=== PATIENT | male | born 1990 | race Two or more races ===

== ENCOUNTER 2020-12-17 20:09 | Emergency (ER) | payer MEDICAID, OTHER ==
[~2020-12-17] VITALS: Ht 175.3 cm; Wt 90.7 kg
[2020-12-17 23:52] VITALS: BP 119/75
== END 2020-12-17 23:07 | disposition left against medical advice (07) ==
LOC: ER 20:13
DX: L02.511 Cutaneous abscess of right hand (principal); L02.512 Cutaneous abscess of left hand; L02.415 Cutaneous abscess of right lower limb; Z53.21 Procedure and treatment not carried out due to patient leaving prior to being seen by health care provider

== ENCOUNTER 2022-04-13 21:10 | Emergency (ER) | payer MEDICAID ==
[~2022-04-13] VITALS: Ht 177.8 cm; Wt 81.6 kg
[2022-04-13 22:10] VITALS: BP 127/54
== END 2022-04-13 22:13 ==
LOC: ER 21:11
DX: R07.89 Other chest pain; F19.10 Other psychoactive substance abuse, uncomplicated
CPT/HCPCS: 93005

== ENCOUNTER 2025-02-08 20:53 | Inpatient (IN) | payer MEDICAID ==
[~2025-02-08] VITALS: Ht 177.8 cm; Wt 88.2 kg
[2025-02-08] MEDS ORDERED: SODIUM CHLORIDE 0.9% 1,000 ML IV ONE (22:00)
[2025-02-08] MEDS ORDERED: ACETAMINOPHEN 325 MG TAB PO ONE (22:00)
[2025-02-08] MEDS ORDERED: PIPERACILLIN-TAZOB 3.375GM 100 ML IV SCH (22:00)
[2025-02-08] MEDS ORDERED: VANCOMYCIN PER PHARMACY 0 MG IV SCH (22:00)
--- NOTE | 2025-02-08 22:07 | ED.PDOC ---
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, was discharged, came here to see his mother, and decided to check in ER. Patient denies fever/chills/nausea/vomiting, he reports diarrhea 3 episodes today-nonbloody. Denies any urinary symptoms. Reports recent meth use. Also reports right thigh 2 cm erythematous swelling with a puncta. Patient noticed that earlier today and thinks with appeared from the pant wearing as he had a lot of itching for the past few days. Patient seen and examined in ER lobby, CT right lower extremity pending, IV antibiotics, blood cultures and wound cultures ordered. Chief Complaint: Abscess Time Seen by MD: 20:56 Reviewed Notes: Nurses Notes Allergies: Coded Allergies: NO KNOWN ALLERGIES (Unverified , 12/17/20) Home Meds Active Scripts Ibuprofen Micronized (MOTRIN TABLET) 600 Mg Tb, 600 MG PO TID PRN for 10 Days, #30 TAB *Black box warning-NSAIDS can increase risk of ND & hypertension, GI irritation, ulceration, bleed, perferation. Do not use post cardiac surgery. Use short duration/lowest effective dose. Prov:BEST COHEN MD 02/09/25 Famotidine (PEPCID TABLET) 20 Mg Tb, 1 TAB PO BID for 30 Days, #60 TAB 0 Refills Prov:BEST COHEN MD 02/09/25 Amoxicillin & Pot Clavulanate (AUGMENTIN TABLET) 875 Mg Tb, 875 MG PO BID for 14 Days, #28 TAB Prov:BEST COHEN MD 02/09/25 Information Source: Patient Mode of Arrival: Ambulatory Past Medical History PAST MEDICAL HISTORY: Denies Surgical History: Denies all surgeries Family History Family History: Reviewed,noncontributory to illness Social History Smoker: Non-Smoker Alcohol: Denies ETOH Use Drugs: Denies Drug Use Lives In: Home Constitutional: denies: chills, diaphoresis, fatigue, fever, malaise, sweats, weakness, others EENTM: denies: blurred vision, double vision, ear bleeding, ear discharge, ear drainage, ear pain, ear ringing, eye pain, eye redness, hearing loss, mouth pain, mouth swelling, nasal discharge, nose bleeding, nose congestion, nose pain, photophobia, tearing, throat pain, throat swelling, voice changes, others Respiratory: denies: cough, hemoptysis, orthopnea, SOB at rest, shortness of breath, SOB with excertion, stridor, wheezing, others Cardiovascular: denies: chest pain, dizzy spells, diaphoresis, Dyspnea on exertion, edema, irregular heart beat, left arm pain, lightheadedness, palpitations, PND, syncope, others Gastrointestinal: reports: diarrhea Genitourinary: denies: burning, dysuria, flank pain, frequency, hematuria, incontinence, penile discharge, penile sore, pain, testicle pain, testicle swelling, urgency, others Neurological: denies: dizziness, fainting, headache, left sided numbness, left sided weakness, numbness, paresthesia, pre-existing deficit, right sided numbness, right sided weakness, seizure, speech problems, tingling, tremors, weakness, others Musculoskeletal: reports: muscle pain Integumetry: reports: change in color, laceration, wounds Allergic/Immunocompromised: denies: Difficulty Healing, Frequent Infections, Hives, Itching, others Hematologic/Lymphatic: denies: anemia, blood clots, easy bleeding, easy bruising, swollen glands, others Endocrine: denies: excessive hunger, excessive sweating, excessive thirst, excessive urination, flushing, intolerance to cold, intolerance to heat, unexplained weight gain, unexplained weight loss, others Psychiatric: denies: anxiety, bipolar disorder, depression, hopeless, panic disorder, schizophrenia, sleepless, suicidal, others Physical Exam General Appearance: Mild Distress, Normal HEENT: Normal ENT Inspection, Pharynx Normal, TMs Normal Neck: Full Range of Motion, Non-Tender, Normal, Normal Inspection Respiratory: Chest Non-Tender, Lungs Clear, No Accessory Muscle Use, No Respiratory Distress, Normal Breath Sounds Cardiovascular: No Edema, No JVD, No Murmur, No Gallop, Normal Peripheral Pulses, Regular Rate/Rhythm Breast Exam: Deferred Gastrointestinal: No Organomegaly, Non Tender, No Pulsatile Mass, Normal Bowel Sounds, Soft Genitalia: Deferred Pelvic: Deferred Rectal: Deferred Extremities: No calf tenderness, Pedal edema, Swelling, Tender Musculoskeletal : Apperance: Normal Neurologic: Alert, stringer up soldering machine II-XII nml as Tested, No Motor Deficits, Normal Affect, Normal Mood, No Sensory Deficits Cerebellar Function: Normal Reflexes: Normal Skin: Dry, Normal Color, Warm Lymphatic: No Adenopathy Was a procedure done? Was a procedure done?: No Differential Diagnosis EXT Differential Diagnosis: Cellulitis, Deep Vein Thrombosis, Compartment Syndrome X-Ray, Labs, Meds, VS Vital Signs Date Time Temp Pulse Resp B/P (MAP) Pulse Ox O2 Delivery O2 Flow Rate FiO2 02/08/25 20:54 99.4 94 20 117/79 98 99.4 Lab Test 02/08/25 22:15 Range/Units White Blood Count 7.8 4.4-10.8 10^3/uL Red Blood Count 4.21 L 4.5-5.90 10^6/uL Hemoglobin 13.1 L 13.5-17.5 g/dL Hematocrit 38.4 L 41.0-53.0 % Mean Corpuscular Volume 91.3 80.0-100.0 fL Mean Corpuscular Hemoglobin 31.1 28.0-32.0 pg Mean Corpuscular Hemoglobin Concent 34.0 32.0-36.0 g/dL Red Cell Distribution Width 13.3 11.8-14.3 % Platelet Count 337 140-450 10^3/uL Mean Platelet Volume 7.4 6.9-10.8 fL Neutrophils (%) (Auto) 76.9 37.0-80.0 % Lymphocytes (%) (Auto) 15.4 10.0-50.0 % Monocytes (%) (Auto) 5.6 0.0-12.0 % Eosinophils (%) (Auto) 1.3 0.0-7.0 % Basophils (%) (Auto) 0.8 0.0-2.0 % Neutrophils # (Auto) 6.0 1.6-8.6 10 ^3/uL Lymphocytes # (Auto) 1.2 0.4-5.4 10 ^3/uL Monocytes # (Auto) 0.4 0-1.3 10 ^3/uL Eosinophils # (Auto) 0.1 0-0.8 10 ^3/uL Basophils # (Auto) 0.1 0-0.2 10 ^3/uL Nucleated Red Blood Cells 0.0 % Erythrocyte Sedimentation Rate 13 0-20 mm/hr Sodium Level 139 136-145 mmol/L Potassium Level 4.3 3.5-5.1 mmol/L Chloride Level 103 98-107 mmol/L Carbon Dioxide Level 28 20-31 mmol/L Anion Gap 8 5-15 Blood Urea Nitrogen 9 9-23 mg/dL Creatinine 0.84 0.700-1.30 mg/dL Glomerular Filtration Rate Calc 116 >90 mL/min BUN/Creatinine Ratio 10.7 10.0-20.0 Serum Glucose 97 74-106 mg/dL Lactic Acid Level 1.3 0.4-2.0 mmol/L Calcium Level 9.1 8.7-10.4 mg/dL Microbiology Date/Time Source Procedure Growth Status 02/08/25 22:15 Blood Blood Culture - Preliminary NO GROWTH AFTER 48 HOURS OF INCUBATION. Resulted 02/08/25 22:00 Blood Blood Culture - Preliminary NO GROWTH AFTER 48 HOURS OF INCUBATION. Resulted Time of 1ST Reevaluation: 22:00 Reevaluation 1ST: Unchanged Time of 2ND Reevaluation: 23:00 Reevaluation 2ND: Unchanged Patient Education/Counseling: Diagnosis, Treatment, Prognosis, Need For Follow Up Family Education/Counseling: No Family Present Sepsis Sepsis Reasesment Focused Exam Orders: Laboratory Tests 02/08/25 22:15: Lactic Acid Level 1.3 Departure 1 Departure Time of Disposition: 23:50 Impression: Primary Impression: Cellulitis of right lower extremity Additional Impressions: Bite wound Abscess Disposition: 30 STILL A PATIENT Condition: Fair Additional Instructions: IV Zosyn, IV vancomycin, CT right lower extremity, Doppler right lower extremity, blood culture, ordered. Patient will be admitted to this facility for further management and evaluation. e-Prescriptions Ibuprofen Micronized (MOTRIN TABLET) 600 Mg Tb 600 MG PO TID PRN for 10 Days, #30 TAB *Black box warning-NSAIDS can increase risk of ND & hypertension, GI irritation, ulceration, bleed, perferation. Do not use post cardiac surgery. Use short duration/lowest effective dose. Prov: BEST COHEN MD 02/09/25 Famotidine (PEPCID TABLET) 20 Mg Tb 1 TAB PO BID for 30 Days, #60 TAB 0 Refills Prov: BEST COHEN MD 02/09/25 Amoxicillin & Pot Clavulanate (AUGMENTIN TABLET) 875 Mg Tb 875 MG PO BID for 14 Days, #28 TAB Prov: BEST COHEN MD 02/09/25 Discharged With: Self Comments Attestation: I saw and evaluated the patient. I agree with the findings and plan of care as documented by the resident note. DEMETRIA HEREDIA MD Critical Care Note Critical Care Time?: No Stability Stability form required: KATHLEEN Catalan RESIDENT Feb 08, 2025 22:07 DEMETRIA HEREDIA MD Feb 11, 2025 03:51
[2025-02-08] MEDS ORDERED: VANCOMYCIN 1.75 GM/350 ML IV ONE (22:15)
[2025-02-08] MEDS ORDERED: PIPERACILLIN-TAZOB 3.375GM 100 ML IV ONE (22:15)
[2025-02-08 22:33] LABS: Hematocrit 38.4 % (41.0-53.0); Hemoglobin 13.1 g/dL (13.5-17.5); Mean Corpuscular Hemoglobin 31.1 pg (28.0-32.0); Mean Corpuscular Volume 91.3 fL (80.0-100.0); Nucleated Red Blood Cells % 0.0 %
[2025-02-08 22:42] LABS: Chloride 103 mmol/L (98-107); Potassium 4.3 mmol/L (3.5-5.1); Sodium 139 mmol/L (136-145)
[2025-02-08 22:43] LABS: Anion Gap 8 (5-15); Calcium 9.1 mg/dL (8.7-10.4); Carbon Dioxide 28 mmol/L (20-31)
[2025-02-08 22:48] LABS: BUN/Creatinine Ratio 10.7 (10.0-20.0); Glucose 97 mg/dL (74-106)
[2025-02-08 22:50] LABS: Blood Urea Nitrogen 9 mg/dL (9-23)
--- NOTE | 2025-02-08 23:06 | DVH ---
CLINICAL HISTORY: swelling, r/o dvt TECHNIQUE: Color and duplex doppler imaging of the right lower extremity veins was performed. Vessel compression if possible was also performed. WID: COMPARISON: CT CT R TIB FIB WO CONTRAST on DOS: 02/08/25 FINDINGS: Right common femoral vein: Normal compressibility and flow. Right femoral vein: Normal compressibility and flow. Right popliteal vein: Normal compressibility and flow. Proximal calf veins are normally compressible. Reactive appearing lymph node in the right inguinal region measuring 4.5 x 2.8 x 0.7 cm. IMPRESSION: 1. NO SONOGRAPHIC EVIDENCE FOR DEEP VENOUS THROMBOSIS IN THE RIGHT LOWER EXTREMITY VEINS.
--- NOTE | 2025-02-08 23:38 | DVH ---
EXAM: CT CT R TIB FIB WO CONTRAST HISTORY: r/o nec fascitis, cellulitis, draining wound R knee and thig COMPARISON: None TECHNIQUE: Noncontrast axial CT images of the tibia and fibula were performed. Sagittal and coronal r eformatted images were obtained. This CT exam was performed using one or more of the following dose r eduction techniques: Automated exposure control, adjustment of the mA and/or kV according to patient size, or use of iterative reconstruction technique. Radiation Dose Information: CT Dose: CTDI volume is 7.85 mGy. Dose-length product is 508.2 mGy*cm FINDINGS: Normal mineralization and alignment. Joint spaces preserved. There is no acute fracture. No focal ost eopenia or cortical destruction to suggest osteomyelitis. There is moderate diffuse subcutaneous lm a within the right lower extremity. There is a small right knee joint effusion. The Muscle bundles ab out the distal right lower extremity are intact. There is no soft tissue gas or loculated fluid eugene ection. IMPRESSION: 1. No acute fracture or evidence of osteomyelitis in the right tibia and fibula. 2. Moderate subcutaneous edema within the distal right lower extremity which could reflect cellulitis . No soft tissue gas to suggest necrotizing infection. 3. No well-formed fluid collection to suggest abscess. 4. Small right knee joint effusion.
[2025-02-09] VITALS (7 sets, daily range): BP systolic 115–127; BP diastolic 68–84; PULSE 66–83; RESP 16–18; TEMP 97.5–98.1; O2SAT 98–100
[2025-02-09] MEDS ORDERED: ONDANSETRON HCL 4 MG/2 ML VIAL IV PRN (01:00)
[2025-02-09] MEDS ORDERED: VANCOMYCIN PER PHARMACY 0 MG IV SCH (01:00)
[2025-02-09] MEDS ORDERED: ACETAMINOPHEN 325 MG TAB PO PRN (01:00)
[2025-02-09] MEDS ORDERED: HYDROcodone-ACET 5/325MG TAB PO PRN (01:00)
[2025-02-09] MEDS ORDERED: TEMAZEPAM 15 MG CAP PO PRN (01:00)
[2025-02-09] MEDS ORDERED: PIPERACILLIN-TAZOB 3.375GM 100 ML IV SCH (02:30)
[2025-02-09] MEDS: SODIUM CHLORIDE 0.9% 1,000 ML IV ONE (03:48)
[2025-02-09] MEDS: ACETAMINOPHEN 325 MG TAB PO ONE (03:50)
[2025-02-09] MEDS: VANCOMYCIN 1.75 GM/350 ML IV ONE (03:53)
[2025-02-09] MEDS: PIPERACILLIN-TAZOB 3.375GM 100 ML IV ONE (04:06)
--- NOTE | 2025-02-09 04:37 | DVHHP2 ---
History of Present Illness Reason for Visit: Extremity swelling History of Present Illness 35-year-old male presents for evaluation of right lower extremity swelling. Patient reports being bitten by a spider on his right posterior knee four days ago. He states noticing swelling for the past three days and has noticed some purulent discharge for the past two days. Denies fever or chills. No other acute complaints reported. Past Medical History Denies Past Surgical History Denies Family History Noncontributory Smoke: No ALCOHOL: none Drugs: None Lives: with Family Review of Systems Review of Systems Review of systems are currently negative otherwise addressed in HPI. Allergies: Coded Allergies: NO KNOWN ALLERGIES (Unverified , 12/17/20) Medications Current Medications Medications Dose Ordered Sig/Prashanth Route Start Time Stop Time Status Last Admin Dose Admin Vancomycin HCl 0 ml @ 0 mls/hr UD IV 02/08/25 22:00 UNV Acetaminophen/ Hydrocodone Bitart 1 tab Q4HP PRN PO 02/09/25 01:00 Temazepam 15 mg QHSP PRN PO 02/09/25 01:00 Ondansetron HCl 4 mg Q4HP PRN IV 02/09/25 01:00 Acetaminophen 650 mg Q6HP PRN PO 02/09/25 01:00 Piperacillin Sod/ Tazobactam Sod 100 ml @ 25 mls/hr Q8HR@0400,1200,2000 IV 02/09/25 12:00 Exam Vital Signs Vital Signs Date Time Temp Pulse Resp B/P (MAP) Pulse Ox O2 Delivery O2 Flow Rate FiO2 02/09/25 01:22 98.4 89 19 113/72 (86) 98 98.4 Exam Gen: 35-year-old male in mild distress Skin: Warm, dry, normal color and texture, no rash. HEENT: Normocephalic atraumatic, mucous membranes moist and pink. Neck: Cervical and supraclavicular nodes normal without enlargement, trachea is midline, thyroid gland is normal without masses. Pulmonary: Clear to auscultation and percussion bilaterally. Cardiac: Regular rate and rhythm. No murmur Abdomen: Soft, nontender, nondistended, bowel sounds present all 4 quadrants, no guarding, no rigidity, no organomegaly. Extremities: No cyanosis, clubbing, right lower extremity with cellulitis and plus two edema with positive distal pulses Neuro: Cranial nerves II through XII grossly intact, normal affect and speech, no focal motor deficits. Labs/Xrays ORDERING PHYSICIAN: KATHLEEN NORWOOD RESIDENT PROCEDURE(s): RTBCT - CT R TIB FIB WO CONTRAST REASON: r/o nec fascitis, cellulitis, draining wound R knee and thig ORDER NUMBER(s): [id number], ACCESSION NUMBER(s): [id number] EXAM: CT CT R TIB FIB WO CONTRAST HISTORY: r/o nec fascitis, cellulitis, draining wound R knee and thig COMPARISON: None TECHNIQUE: Noncontrast axial CT images of the tibia and fibula were performed. Sagittal and coronal reformatted images were obtained. This CT exam was performed using one or more of the following dose reduction techniques: Automated exposure control, adjustment of the mA and/or kV according to patient size, or use of iterative reconstruction technique. Radiation Dose Information: CT Dose: CTDI volume is 7.85 mGy. Dose-length product is 508.2 mGy*cm FINDINGS: Normal mineralization and alignment. Joint spaces preserved. There is no acute fracture. No focal osteopenia or cortical destruction to suggest osteomyelitis. There is moderate diffuse subcutaneous edema within the right lower extremity. There is a small right knee joint effusion. The Muscle bundles about the distal right lower extremity are intact. There is no soft tissue gas or loculated fluid collection. IMPRESSION: 1. No acute fracture or evidence of osteomyelitis in the right tibia and fibula. 2. Moderate subcutaneous edema within the distal right lower extremity which could reflect cellulitis. No soft tissue gas to suggest necrotizing infection. 3. No well-formed fluid collection to suggest abscess. 4. Small right knee joint effusion. Labs Test 02/08/25 22:15 Range/Units White Blood Count 7.8 4.4-10.8 10^3/uL Red Blood Count 4.21 L 4.5-5.90 10^6/uL Hemoglobin 13.1 L 13.5-17.5 g/dL Hematocrit 38.4 L 41.0-53.0 % Mean Corpuscular Volume 91.3 80.0-100.0 fL Mean Corpuscular Hemoglobin 31.1 28.0-32.0 pg Mean Corpuscular Hemoglobin Concent 34.0 32.0-36.0 g/dL Red Cell Distribution Width 13.3 11.8-14.3 % Platelet Count 337 140-450 10^3/uL Mean Platelet Volume 7.4 6.9-10.8 fL Neutrophils (%) (Auto) 76.9 37.0-80.0 % Lymphocytes (%) (Auto) 15.4 10.0-50.0 % Monocytes (%) (Auto) 5.6 0.0-12.0 % Eosinophils (%) (Auto) 1.3 0.0-7.0 % Basophils (%) (Auto) 0.8 0.0-2.0 % Neutrophils # (Auto) 6.0 1.6-8.6 10 ^3/uL Lymphocytes # (Auto) 1.2 0.4-5.4 10 ^3/uL Monocytes # (Auto) 0.4 0-1.3 10 ^3/uL Eosinophils # (Auto) 0.1 0-0.8 10 ^3/uL Basophils # (Auto) 0.1 0-0.2 10 ^3/uL Nucleated Red Blood Cells 0.0 % Erythrocyte Sedimentation Rate 13 0-20 mm/hr Sodium Level 139 136-145 mmol/L Potassium Level 4.3 3.5-5.1 mmol/L Chloride Level 103 98-107 mmol/L Carbon Dioxide Level 28 20-31 mmol/L Anion Gap 8 5-15 Blood Urea Nitrogen 9 9-23 mg/dL Creatinine 0.84 0.700-1.30 mg/dL Glomerular Filtration Rate Calc 116 >90 mL/min BUN/Creatinine Ratio 10.7 10.0-20.0 Serum Glucose 97 74-106 mg/dL Lactic Acid Level 1.3 0.4-2.0 mmol/L Calcium Level 9.1 8.7-10.4 mg/dL SEPSIS Sepsis Screen Date sepsis recognized/suspect: Feb 08, 2025 Time Sepsis recognized/suspect: 2055 Recent Procedure: No On Antibiotic Therapy: No Respiratory Rate >20: No Heart Rate >90: Yes Temp<36 C (96.8 F) or >38.3 C: No SBP <90 or MAP <65 mmHG: No New Acute Mental Status Change: No Is the patient on CPAP, BIPAP,: No Physician Orders Blood Culture (02/08/25 21:52) Wound Culture W/ Gs (02/08/25 21:52) Vancomycin Per Pharmacy (02/08/25 22:00) Ct R Tib Fib Wo Contrast (02/08/25 21:52) Rt Lower Dvt (02/08/25 21:55) Cleanse Wound With Ns (02/08/25 21:56) Drug Screen (02/08/25 21:57) Urinalysis (02/08/25 21:57) Regular Diet (02/09/25 Breakfast) Basic Metabolic Panel (02/09/25 04:00) Complete Blood Count (02/09/25 04:00) Admit (02/09/25 00:50) Hydrocodone-Acet 5/325mg Tab (Alba 5/32 (02/09/25 01:00) Temazepam (Restoril) (02/09/25 01:00) Ondansetron Hcl (Zofran) (02/09/25 01:00) Condition: Stable (02/09/25 00:50) Acetaminophen Tablet (Tylenol Tablet) (02/09/25 01:00) Bedrest With Bathroom Privileg (02/09/25 00:50) Vancomycin 1.75gm/350ml (02/09/25 03:30) Piperacillin-Tazob 3.375gm (Zosyn 3.375g (02/09/25 12:00) Vital Signs Date Time Temp Pulse Resp B/P (MAP) Pulse Ox O2 Delivery O2 Flow Rate FiO2 02/09/25 01:22 98.4 89 19 113/72 (86) 98 98.4 02/08/25 20:54 99.4 94 20 117/79 98 99.4 Laboratory Tests Test 02/08/25 22:15 Lactic Acid Level 1.3 mmol/L (0.4-2.0) White Blood Count 7.8 10^3/uL (4.4-10.8) Medications Medications Dose Ordered Sig/Prashanth Route Start Time Stop Time Status Last Admin Dose Admin Acetaminophen 650 mg ONCE ONCE PO 02/09/25 03:30 02/09/25 03:31 DC 02/09/25 03:50 650 MG Piperacillin Sod/ Tazobactam Sod 100 ml @ 100 mls/hr ONCE ONCE IV 02/09/25 03:30 02/09/25 04:29 DC 02/09/25 04:06 100 MLS/HR Sodium Chloride 1,000 ml @ 1,000 mls/hr Q1H ONCE IV 02/09/25 03:30 02/09/25 04:29 DC 02/09/25 03:48 1,000 MLS/HR Vancomycin HCl 350 ml @ 200 mls/hr ONCE ONCE IV 02/09/25 03:30 02/09/25 05:14 02/09/25 03:53 200 MLS/HR Assessment/Plan Assessment/Plan Assessment Right lower extremity cellulitis Plan Admit the patient to [facility] to the hospitalist Zosyn/vancomycin Wound culture pending Pain management Continue treatment per orders. Plan discussed with: Patient My Orders Orders - FEDERICO MCQUEEN Procedure Category Date Status Time Regular Diet DIET 02/09/25 Transmitted Breakfast Basic Metabolic Panel LAB 02/09/25 Logged 04:00 Complete Blood Count LAB 02/09/25 Logged 04:00 Admit ADMIT 02/09/25 Transmitted 00:50 Hydrocodone-Acet PHA 02/09/25 In Process 5/325mg Tab (Alba 01:00 Temazepam (Restoril) PHA 02/09/25 In Process 01:00 Ondansetron Hcl PHA 02/09/25 In Process (Zofran) 01:00 Condition: Stable RIKKI 02/09/25 In Process 00:50 Acetaminophen Tablet PHA 02/09/25 In Process (Tylenol Tablet) 01:00 Bedrest With Bathroom RIKKI 02/09/25 In Process Privileg 00:50 Piperacillin-Tazob PHA 02/09/25 In Process 3.375gm (Zosyn 3.375g 12:00 Date of Service: Feb 09, 2025 Billing Provider: FEDERICO MCQUEEN Common Visit Codes: [id number] INP/OBS CARE (MOD) FEDERICO MCQUEEN Feb 09, 2025 04:37
[2025-02-09 06:26] LABS: Anion Gap 11 (5-15); Calcium 8.8 mg/dL (8.7-10.4); Carbon Dioxide 27 mmol/L (20-31); Chloride 105 mmol/L (98-107); Potassium 3.7 mmol/L (3.5-5.1); Sodium 143 mmol/L (136-145)
[2025-02-09 06:32] LABS: BUN/Creatinine Ratio 12.2 (10.0-20.0); Blood Urea Nitrogen 10 mg/dL (9-23); Glucose 83 mg/dL (74-106)
[2025-02-09 06:35] LABS: Hematocrit 38.3 % (41.0-53.0); Hemoglobin 12.8 g/dL (13.5-17.5); Mean Corpuscular Hemoglobin 30.7 pg (28.0-32.0); Mean Corpuscular Volume 91.9 fL (80.0-100.0); Nucleated Red Blood Cells % 0.1 %
[2025-02-09] MEDS ORDERED: FAMO20TA10 PO (11:07)
[2025-02-09] MEDS ORDERED: AUG875T PO (11:07)
[2025-02-09] MEDS ORDERED: IBU600T PO (11:07)
[2025-02-09] MEDS: VANCOMYCIN 1GM/250ML KIT 250 ML IV SCH (11:42)
[2025-02-09] MEDS: PIPERACILLIN-TAZOB 3.375GM 100 ML IV SCH (12:00)
--- NOTE | 2025-02-09 13:22 | DVHDS2 ---
Discharge Summary Date of Admission Feb 09, 2025 at 00:50 Date of Discharge: Feb 09, 2025 Labs/Diagnostic Data: Laboratory Results Test 02/09/25 05:02 02/08/25 22:15 White Blood Count 7.2 10^3/uL (4.4-10.8) Red Blood Count 4.17 10^6/uL (4.5-5.90) Hemoglobin 12.8 g/dL (13.5-17.5) Hematocrit 38.3 % (41.0-53.0) Mean Corpuscular Volume 91.9 fL (80.0-100.0) Mean Corpuscular Hemoglobin 30.7 pg (28.0-32.0) Mean Corpuscular Hemoglobin Concent 33.4 g/dL (32.0-36.0) Red Cell Distribution Width 13.3 % (11.8-14.3) Platelet Count 297 10^3/uL (140-450) Mean Platelet Volume 8.2 fL (6.9-10.8) Neutrophils (%) (Auto) 56.9 % (37.0-80.0) Lymphocytes (%) (Auto) 26.8 % (10.0-50.0) Monocytes (%) (Auto) 12.6 % (0.0-12.0) Eosinophils (%) (Auto) 2.9 % (0.0-7.0) Basophils (%) (Auto) 0.8 % (0.0-2.0) Neutrophils # (Auto) 4.1 10 ^3/uL (1.6-8.6) Lymphocytes # (Auto) 1.9 10 ^3/uL (0.4-5.4) Monocytes # (Auto) 0.9 10 ^3/uL (0-1.3) Eosinophils # (Auto) 0.2 10 ^3/uL (0-0.8) Basophils # (Auto) 0.1 10 ^3/uL (0-0.2) Nucleated Red Blood Cells 0.1 % Sodium Level 143 mmol/L (136-145) Potassium Level 3.7 mmol/L (3.5-5.1) Chloride Level 105 mmol/L (98-107) Carbon Dioxide Level 27 mmol/L (20-31) Anion Gap 11 (5-15) Blood Urea Nitrogen 10 mg/dL (9-23) Creatinine 0.82 mg/dL (0.700-1.30) Glomerular Filtration Rate Calc 117 mL/min (>90) BUN/Creatinine Ratio 12.2 (10.0-20.0) Serum Glucose 83 mg/dL (74-106) Calcium Level 8.8 mg/dL (8.7-10.4) Erythrocyte Sedimentation Rate 13 mm/hr (0-20) Lactic Acid Level 1.3 mmol/L (0.4-2.0) Other Laboratory Tests 02/09/25 05:02 Brief Hx & Hospital Course: 35 M with no sig pmh admitted for ulcer and celulitis. given zosyn and vanc. improved. ct no abscess. wound care and dc on oral abx Condition at Discharge: Good Final Diagnosis/Problems List celulitis ulcer Discharge Disposition: Home Discharge Statement: "Patient was advised to return to the ER or call 911 if any headaches, dizziness, shortness of breath, chest pain, abdominal pain, bleeding, fevers, or worsening of medical condition. Patient was counseled about treatment plan, medications, possible side effects, patientverbalized understanding. All questions were answered to the best of my ability. This discharge took greater then 30 minutes in planning, reviewing documentation, counseling the patient, and discussing with other team members." ASSESSMENT ASSESSMENT Assessment Date of Service: Feb 09, 2025 Billing Provider: BEST COHEN MD Common Visit Codes: [id number] DISCH DAY >30min BEST COHEN MD Feb 09, 2025 13:22
== END 2025-02-09 15:45 | disposition home or self-care (01) | DRG 383 ==
LOC: ER 20:53 → OVERFLOW 02-09 00:50 → CENTRAL 02-09 02:56
PROVIDERS: ADMIT Student in an Organized Health Care Education/Training Program; ATTEND Student in an Organized Health Care Education/Training Program
DX: L03.115 Cellulitis of right lower limb (principal); L97.818 Non-pressure chronic ulcer of other part of right lower leg with other specified severity; L02.415 Cutaneous abscess of right lower limb
CPT/HCPCS: 36415; 73700; 80048; 83605; 85025; 85652; 87040; 93971; G0378; J2543